=== PATIENT | female | born 1995 | race Caucasian/White ===

== ENCOUNTER 2016-12-26 02:05 | Emergency (ER) | payer MEDICAID, OTHER ==
[~2016-12-26] VITALS: Ht 167.6 cm; Wt 55.0 kg
[~2016-12-26 02:05] MED LIST: CLIN150 PO
[2016-12-26 02:09] VITALS: BP 146/78; PULSE 100; RESP 16; TEMP 98.8; O2SAT 98
[2016-12-26 09:50] VITALS: BP 137/81; PULSE 94; RESP 15; O2SAT 97
[2016-12-26] MEDS ORDERED: ONDANSETRON HCL 4 MG/2 ML VIAL IM ONE (10:00)
[2016-12-26] MEDS ORDERED: KETOROLAC TROMETHAMINE 60 MG/2 ML (IM) VIAL IM ONE (10:00)
[2016-12-26 10:29] LABS: BACTERIA, URINE MOD /hpf; BLOOD, URINE MOD (NEG); COMMENT (UR) CULTURE INDICATED; CULTURE IF INDICATED CULTURE INDICATED; GLUCOSE,URINE NEG (NEG); KETONE, URINE NEG (NEG); MUCUS URINE FEW /lpf (OCC); NITRITE,URINE NEG (NEG); PH, URINE 6.5 (5.0-8.5); SQUAMOUS EPITHELIAL CELL URINE 3 /hpf (0-5); URINE COLOR YELLOW (YELLW/STRAW)
[2016-12-26] MEDS ORDERED: KETO10 PO (10:33)
[2016-12-26] MEDS ORDERED: CEPH-460 PO (10:33)
--- NOTE | 2016-12-26 10:33 | PD ---
HPI Chief Complaint: Flank/Kidney Pain Time Seen by Provider: 09:54 Travel History International Travel<30 days: No Contact w/Intl Traveler<30days: No Traveled to known affect area: No History of Present Illness HPI 21-year-old healthy female here with complaint of bilateral flank pain for the last 2-3 days. Patient states that she recently turned 21 and was partying for her birthday. She thought that her symptoms were due to dehydration but has not improved after she drink plenty of fluids. She one week ago had a positive home urine infection test and she took Uristat which helped the burning when she urinates. She is now asymptomatic with regard to urinary symptoms. No abnormal vaginal bleeding, vaginal discharge. She is not having any pain within the abdomen. No fevers, chills. Some nausea but no vomiting. Pain is crampy, slightly worse with movement. PFSH Past Medical History Depression: Yes Diminished Hearing: No Respiratory: Yes (asthma as a child) Immunizations Current: No (PARENTS AGAINST VACCINES) Tetanus Vaccination: Unknown Influenza Vaccination: No ?: Not Past Surgical History Surgical History: No Previous Surgery Social History Alcohol Use: Yes Tobacco Use: No Substance Use: No Allergies-Medications (Allergen,Severity, Reaction): Coded Allergies: No Known Allergies (Unverified , 12/26/16) Reported Meds & Prescriptions Reported Meds & Active Scripts Active Ketorolac (Ketorolac Tromethamine) 10 Mg Tab 10 Mg PO TID PRN Keflex (Cephalexin) 500 Mg Cap 500 Mg PO Q8H 7 Days Review of Systems Except as stated in HPI: all other systems reviewed are Neg Physical Exam Narrative GENERAL: Well-appearing female in mild distress SKIN: Focused skin assessment warm/dry. HEAD: Normocephalic. EYES: No scleral icterus. No injection or drainage. ENT: Mucous membranes pink and moist. NECK: Supple CARDIOVASCULAR: Regular rate and rhythm. RESPIRATORY: No accessory muscle use. GASTROINTESTINAL: Abdomen soft, non-tender, nondistended. Bilateral CVA tenderness MUSCULOSKELETAL: Normal gait NEUROLOGICAL: Awake and alert. Normal speech. PSYCHIATRIC: Appropriate mood and affect; insight and judgment normal. Data Data Last Documented VS Vital Signs Date Time Temp Pulse Resp B/P Pulse Ox O2 Delivery O2 Flow Rate FiO2 12/26/16 09:50 94 15 137/81 97 Room Air 12/26/16 02:09 98.8 Orders Urinalysis - C+S If Indicated (12/26/16 09:30) Ed Urine Pregnancytest Poc (12/26/16 09:58) Ketorolac Inj (Toradol Inj) (12/26/16 10:00) Ondansetron Inj (Zofran Inj) (12/26/16 10:00) Urine Culture (12/26/16 10:00) Lidocaine 1% Inj (50 Ml) (Xylocaine 1% I (12/26/16 10:45) Ceftriaxone Inj (Rocephin Inj) (12/26/16 10:45) Labs Laboratory Tests Test 12/26/16 10:00 Urine Color YELLOW Urine Turbidity CLOUDY Urine pH 6.5 Urine Specific [place] 1.014 Urine Protein 30 mg/dL Urine Glucose (UA) NEG mg/dL Urine Ketones NEG mg/dL Urine Occult Blood MOD Urine Nitrite NEG Urine Bilirubin NEG Urine Urobilinogen LESS THAN 2.0 MG/DL Urine Leukocyte Esterase LARGE Urine RBC 76 /hpf Urine WBC /hpf Urine WBC Clumps MANY Urine Squamous Epithelial 3 /hpf Cells Urine Bacteria MOD /hpf Urine Mucus FEW /lpf Microscopic Urinalysis Comment CULTURE INDICATED MDM Medical Decision Making Medical Screen Exam Complete: Yes Emergency Medical Condition: Yes Medical Record Reviewed: Yes Differential Diagnosis 21-year-old female here with several days of bilateral flank pain and urinary symptoms now resolved after home Uristat. Differential includes UTI, cystitis versus pyelonephritis, less likely ureterolithiasis, musculoskeletal. Narrative Course Urine sample with cloudy urine with blood, white cells, cell clumps and bacteria. Patient was given Toradol, Zofran, Rocephin and will be discharged home with Keflex. Diagnosis Primary Impression: Pyelonephritis Referrals: Primary Care Physician as needed Patient Instructions: General Instructions, Kidney Infection (ED) Additional Instructions: Finish antibiotics as prescribed. Toradol as needed for pain. Med/Other Pt SpecificInfo: Prescription(s) given Scripts Ketorolac 10 Mg Tab10 Mg PO TID PRN (PAIN SCALE 1 TO 10) #15 TAB Ref 0 Prov:Polly Tisnley MD 12/26/16 Cephalexin (Keflex)500 Mg Qib258 Mg PO Q8H 7 Days Ref 0 Prov:Polly Tinsley MD 12/26/16 Disposition: 01 DISCHARGE HOME Condition: Stable Polly Tinsley MD Dec 26, 2016 10:33
[2016-12-26] MEDS ORDERED: LIDOCAINE HCL 1% 50 ML VIAL IM ONE (10:45)
== END 2016-12-26 12:12 | disposition home or self-care (01) ==
LOC: NEPB 02:05
DX: N12 Tubulo-interstitial nephritis, not specified as acute or chronic (principal); B96.20 Unspecified Escherichia coli [E. coli] as the cause of diseases classified elsewhere
CPT/HCPCS: 81001; 84703; 87077; 87086; 87186; 96372; 99284; J0696; J1885; J2405